=== PATIENT | female | born 1985 | race Caucasian/White ===

== ENCOUNTER 2017-09-13 10:56 | Emergency (ER) | payer OTHER ==
[2017-09-13 11:04] VITALS: BP 135/78; BMI 27.8
--- NOTE | 2017-09-13 11:43 | DR.URINEF ---
HPI - Time Seen Time seen: 11:40 - PCP Primary Care Physician: JAVIER FRANCIS - Complaint Chief Complaint Doctors Comments: Patient fell onto a tool box injured her right side. She has been complaining of right side pain and dysuria. Chief Complaint:: PT C/O FALLING OFF OF A RIP STICK ON 09/12/17 AND SHE C/O PAIN TO HER NECK AND RIGHT SHOULDER AND SHE NOTICED BLOOD IN HER UA.. AND THAT SHE WENT TO HER MD TODAY AND THEY TOLD HER TO COME HERE.. - Source History Provided: Patient - Mode of Arrival Mode of Arrival: Ambulatory - Timing Onset of Chief Complaint: 09/12/17 PMH - PMH Past Medical History: Yes Past Medical History: Hypertension Past Medical History Comment: > HR Past Surgical History: Yes Surgical History: Hysterectomy - Family History History of Family Medical Conditions: No Family Medical History: Diabetes Mellitus, Coronary Artery Disease, Hypertension - Social History Does patient currently use any type of tobacco product: Yes Have you used tobacco products in the last 12 months: Yes Type of Tobacco Use: Cigarettes How many years tobacco product used: 1 Does any household member use tobacco: No Alcohol Use: None Do you use any recreational Drugs:: No Lives With: Family Lives Where: Home - infectious screening In the last 2 months have you had wt loss of >10#?: NO Have you had fever, night sweats or hemotysis?: No Have you traveled outside the country in the last 6 months?: No Isolation: Standard ROS - Review of Systems Constitutional: No Symptoms Reported Eyes: No Symptoms Reported ENTM: No Symptoms Reported Respiratoy: No Symptoms Reported Cardiovascular: No Symptoms Reported Gastrointestinal/Abdominal: No Symptoms Reported Genitourinary: No Symptoms Reported Neurological: No Symptoms Reported Musculoskeletal: Muscle Pain (right flank richards) Integumentary: No Symptoms Reported Hematologic/Lymphatic: No Symptoms Reported Endocrine: No Symptoms Reported Psychiatric: No Symptoms Reported All Other Systems: Reviewed and Negative PE - Vital Signs Vitals: Temperature 98.2 F Pulse Rate 85 Respiratory Rate 20 Blood Pressure 135/78 O2 Sat by Pulse Oximetry 100 - General General Appearance: Alert, In No Apparent Distress - Head Head Exam: Normal Inspection, Atraumatic - Eyes Eye exam: Normal Appearance, PERRL, EOMI - ENT ENT Exam: Normal Exam - Neck Neck Exam: Normal Inspection, Full ROM - Chest Chest Inspection: Normal Inspection - Respiratory Respiratory Exam: Normal Lung Sounds Bilat Respiratory Exam: Bilateral Clear to Auscultation - Cardiovascular Cardiovascular Exam: Regular Rate, Normal Rhythm - Abdominal Exam Abdominal Exam: Normal Inspection Abdominal Tenderness: negative: RUQ, RLQ, LUQ, LLQ, Epigastrium, Suprapubic, Diffuse, Mild, Moderate, Severe, Other - Rectal Rectal Exam: Deferred - Genitourinary External Exam: Female: Deferred : Speculum Exam (Female): Deferred : Bimanual Exam (female): Deferred - Extremities Extremities Exam: Normal Inspection, Full ROM - Back Back Exam: Normal Inspection, Full ROM - Neurologic Neurological Exam: Alert, Oriented X3, CN II-XII Intact - Psychiatric Psychiatric Exam: Normal Affect - Skin Skin Exam: Warm, Dry, Intact ROR - Labs Reviewed Result Diagrams: 09/13/17 11:57 09/13/17 11:57 Laboratory: WBC 13.2 X10^3/uL (3.6-10.0) H 09/13/17 11:57 RBC 4.56 X10^6/uL (3.5-5.4) 09/13/17 11:57 Hgb 14.1 g/dL (12.0-16.0) 09/13/17 11:57 Hct 41.2 % (36.0-47.0) 09/13/17 11:57 MCV 90.2 fL (80.0-100.0) 09/13/17 11:57 MCH 31.0 pg (27.0-34.0) 09/13/17 11:57 MCHC 34.3 g/dL (33.0-35.0) 09/13/17 11:57 RDW 12.3 % (11.6-16.5) 09/13/17 11:57 Plt Count 328 X10^3/uL (150.0-450.0) 09/13/17 11:57 MPV 7.4 fL (7.4-11.0) 09/13/17 11:57 Neut % (Auto) 62.7 % (42.0-75.0) 09/13/17 11:57 Lymph % (Auto) 26.8 % (21.0-51.0) 09/13/17 11:57 Holt % (Auto) 6.5 % (0.0-13.0) 09/13/17 11:57 Eos % (Auto) 3.1 % (0.9-2.9) H 09/13/17 11:57 Baso % (Auto) 0.9 % (0.2-1.0) 09/13/17 11:57 Neut # (Auto) 8.3 x10^3/uL (2.2-4.8) H 09/13/17 11:57 Lymph # (Auto) 3.5 X10^3/uL (1.3-2.9) H 09/13/17 11:57 Holt # (Auto) 0.9 x10^3/uL (0.3-0.8) H 09/13/17 11:57 Eos # (Auto) 0.4 x10^3/uL (0.0-0.2) H 09/13/17 11:57 Baso # (Auto) 0.1 X10^3/uL (0.0-0.1) 09/13/17 11:57 Absolute Nucleated RBC 0.1 /100WBC 09/13/17 11:57 Sodium 142 mmol/L (136-145) 09/13/17 11:57 Corrected Sodium TNP 09/13/17 11:57 Potassium 4.0 mmol/L (3.5-5.1) 09/13/17 11:57 Chloride 104 mmol/L (98-107) 09/13/17 11:57 Carbon Dioxide 28.6 mmol/L (21-32) 09/13/17 11:57 BUN 21 mg/dL (7-18) H 09/13/17 11:57 Creatinine 0.88 mg/dL (0.55-1.02) 09/13/17 11:57 Est GFR (MDRD) Af Amer > 60 (>60) 09/13/17 11:57 Est GFR (MDRD) Non-Af > 60 (>60) 09/13/17 11:57 Glucose 89 mg/dL (65-99) 09/13/17 11:57 Calcium 8.8 mg/dL (8.5-10.1) 09/13/17 11:57 - XRAY XRAY Interpreted by: Radiologist (CT Cervical Spine: There is normal alignment without fracture or compression. There are mild osteophytes diffusely about the cervical facet joints. The spinous processes are intact. There is mild anterior osteophyte formation at C6-7. The visualized lung apices are clear. The soft tissues appear unremarkable. Impression: Mild facet joint osteoarthritis and C6-[address] Abd/Pel w/o: There is elevation of the right hemidiaphragm. There is no plelural effusion. The liver and spleen and pancreas and kidneys are unremarkable without contusion or laceration or mass. There is no hydronephrosis. There is no free fluid or free air. The appendix is normal. There is no abnormal bowel distention or bowel wall thickening. The uterus is apparently absent. There is no adnexal mass. No bony abnormality is demonstrated. The urinary bladder is unremarkable. The gallbladderr is unremarkable. Impression: Negative, no acute disease demonstrated.) - Diagnosis Discharge Problem: DJD (degenerative joint disease), cervical Contusion of rib on right side Qualifiers: Encounter type: initial encounter Qualified Code(s): S20.211A - Contusion of right front wall of thorax, initial encounter Osteoarthritis Qualifiers: Osteoarthritis location: unspecified site Osteoarthritis type: unspecified Qualified Code(s): M19.90 - Unspecified osteoarthritis, unspecified site - Discharge Plan Condition: Stable - Follow ups/Referrals Follow ups/Referrals: JAVIER FRANCIS [Primary Care Provider] - 3 days - Instructions
[2017-09-13] MEDS ORDERED: LR 1000 ML IV 0 ML IV ONE (11:50)
[2017-09-13] MEDS ORDERED: LR 1000 ML IV 1,000 ML IV ONE (11:56)
[2017-09-13] MEDS ORDERED: LR 1000 ML IV 1,000 ML IV SCH (12:00)
[2017-09-13 12:07] LABS: BASOPHILS # (AUTO) 0.1 X10^3/uL (0.0-0.1); BASOPHILS % (AUTO) 0.9 % (0.2-1.0); EOSINOPHILS # (AUTO) 0.4 x10^3/uL (0.0-0.2); EOSINOPHILS % (AUTO) 3.1 % (0.9-2.9); HEMATOCRIT 41.2 % (36.0-47.0); HEMOGLOBIN 14.1 g/dL (12.0-16.0); LYMPHOCYTES # (AUTO) 3.5 X10^3/uL (1.3-2.9); LYMPHOCYTES % (AUTO) 26.8 % (21.0-51.0); MEAN CORPUSCULAR HGB CONC 34.3 g/dL (33.0-35.0); MEAN CORPUSCULAR VOLUME 90.2 fL (80.0-100.0); MEAN PLATELET VOLUME 7.4 fL (7.4-11.0); MONOCYTES # (AUTO) 0.9 x10^3/uL (0.3-0.8); MONOCYTES % (AUTO) 6.5 % (0.0-13.0); NEUTROPHILS # (AUTO) 8.3 x10^3/uL (2.2-4.8); NEUTROPHILS % (AUTO) 62.7 % (42.0-75.0); PLATELET COUNT 328 X10^3/uL (150.0-450.0); RED BLOOD COUNT 4.56 X10^6/uL (3.5-5.4); RED CELL DISTRIBUTION WIDTH 12.3 % (11.6-16.5); WHITE BLOOD COUNT 13.2 X10^3/uL (3.6-10.0)
[2017-09-13 12:11] LABS: BLOOD UREA NITROGEN 21 mg/dL (7-18); CALCIUM 8.8 mg/dL (8.5-10.1); CARBON DIOXIDE 28.6 mmol/L (21-32); CHLORIDE 104 mmol/L (98-107); CREATININE 0.88 mg/dL (0.55-1.02); SODIUM 142 mmol/L (136-145); eGFR BLACK RACES > 60 (>60); eGFR NON BLACK RACES > 60 (>60)
[2017-09-13] MEDS ORDERED: NS 100 ML IV 100 ML IV ONE (12:32)
[2017-09-13] MEDS ORDERED: TORADOL 30 MG VIAL IVP ONE (12:51)
[2017-09-13] MEDS ORDERED: TORADOL 30 MG VIAL ONE (12:52)
--- NOTE | 2017-09-13 13:11 | CT ---
History: Fall yesterday on pole box with neck and shoulder pain Study: CT cervical spine without contrast. Sagittal and coronal reformations were provided. Findings: There is normal alignment without fracture or compression. There are mild osteophytes diffu sely about the cervical facet joints. The spinous processes are intact. There is mild anterior osteop hyte formation at C6-7. The visualized lung apices are clear. The soft tissues appear unremarkable. Impression: Mild facet joint osteoarthritis and C6-7 degenerative disc disease. No fracture demonstra shandra. Reported By:
--- NOTE | 2017-09-13 13:14 | CT ---
History: Fall yesterday with flank pain and hematuria Study: CT abdomen and pelvis without contrast. Sagittal and coronal reformations were provided. Comparison: None Findings: The visualized lung bases are grossly clear. There is elevation of the right hemidiaphragm. There is no pleural effusion. The liver and spleen and pancreas and kidneys are unremarkable without contusion or laceration or mass. There is no hydronephrosis. There is no free fluid or free air. The appendix is normal. There is no abnormal bowel distention or bowel wall thickening. The uterus is ap parently absent. There is no adnexal mass. No bony abnormality is demonstrated. The urinary bladder i s unremarkable. The gallbladder is unremarkable. Impression: Negative, no acute disease demonstrated. Reported By:
[2017-09-13] MEDS ORDERED: DILAUDID INJ IVP PRN (13:58)
== END 2017-09-13 14:12 | disposition home or self-care (01) ==
LOC: ER 11:23
DX: S20.211A Contusion of right front wall of thorax, initial encounter (principal); M19.90 Unspecified osteoarthritis, unspecified site; M50.30 Other cervical disc degeneration, unspecified cervical region; W01.198A Fall on same level from slipping, tripping and stumbling with subsequent striking against other object, initial encounter
CPT/HCPCS: 36415; 72125; 74177; 80048; 85025; 96365; 96367; 96374; 96375; 99283; A4222; J1885; J7120